=== PATIENT | female | born 1965 | race Caucasian/White ===

== ENCOUNTER 2021-07-27 09:43 | Emergency (ER) | payer BC ==
--- NOTE | 2021-07-27 10:12 | RAD REPORT ---
EXAM DESCRIPTION: CT - Stone Protocol - 07/27/2021 10:02 am CLINICAL HISTORY: Flank pain. Abd pain;Flank pain COMPARISON: No comparisons TECHNIQUE: Axial images were obtained without oral or IV contrast. Lack of contrast limits solid org an and vascular assessment. The [id number] spans the entirety of the system partially obscuring uppermost abdomen and lung bases. Coronal reformatted images were obtained and reviewed. All CT scans are performed using dose optimization technique as appropriate and may include automated exposure control or mA/KV adjustment according to patient size. FINDINGS: The lower lung smith are clear. Imaged portions of the liver and spleen show no suspicious findings on non-contrast imaging.Benign he patic cyst. The pancreas and adrenal glands are normal. No pathologic lymphadenopathy in the abdomen or pelvis. No urinary tract stones or obstructive uropathy. Benign exophytic left renal cyst measuring 18 mm. No bowel obstruction, free air, free fluid or abscess. Normal appendix noted.Mild sigmoid diverticulo sis. No significant bony abnormality. IMPRESSION: No urinary tract stones or obstructive uropathy.
[2021-07-27 10:20] LABS: Urine Blood Negative (Negative); Urine Glucose Negative (Negative); Urine Protein Negative (Negative)
[2021-07-27] MEDS ORDERED: MORPHINE 4 MG/ML SYR ONE (10:21)
[2021-07-27] MEDS ORDERED: NA CHLORIDE 0.9% 50 ML ONE (10:21)
[2021-07-27] MEDS ORDERED: ONDANSETRON 4 MG/2 ML VIAL ONE (10:21)
[2021-07-27] MEDS ORDERED: NA CHLORIDE 0.9% 1,000 ML ONE (10:21)
[2021-07-27] MEDS ORDERED: CEFTRIAXONE 1000 MG/VIAL ONE (10:21)
[2021-07-27 10:39] LABS: Absolute Lymphocytes (CBC) 1.9 K/uL (0.7-4.9); Hematocrit 40.7 % (36.0-45.0); Lymphocytes % 23.8 % (15.3-44.8); MPV 9.4 fL (7.6-11.3); RBC Red Blood Cell Count 4.58 M/uL (3.86-4.86)
[2021-07-27 10:49] LABS: Albumin 3.6 g/dL (3.4-5.0); Bilirubin Total 0.4 mg/dL (0.2-1.0); Potassium 4.1 mmol/L (3.5-5.1); Protein, Total 7.7 g/dL (6.4-8.2)
[2021-07-27 11:03] LABS: Urine Bacteria 20-50 /HPF (<20); Urine RBC NONE SEEN /HPF (NONE SEEN)
--- NOTE | 2021-07-27 11:11 | EDPHYS ---
Physician Documentation [facility] Name: Santa Valerio Age: 55 yrs Sex: Female : 1965 Arrival Date: 07/27/2021 Time: 09:45 Bed 8 Private MD: Marcus Staley ED Physician Avelino Barth HPI: 07/27 11:06 This 55 yrs old Female presents to ER via Ambulatory with complaints of R myla Side Pain. 11:06 The patient presents with abdominal pain in the lower abdomen, right lower quadrant. myla Onset: The symptoms/episode began/occurred 3 day(s) ago. The patient presents with pelvic pain, that is located in/on the right lower quadrant, urinary symptoms. Onset: The symptoms/episode began/occurred 2 day(s) ago. Modifying factors: The symptoms are alleviated by nothing, the symptoms are aggravated by nothing. Associated signs and symptoms: The patient has no apparent associated signs or symptoms. Severity of symptoms: At their worst the symptoms were mild, in the emergency department the symptoms are unchanged. The patient is not sexually active. Historical: - Allergies: 10:02 No Known Allergies; jl7 - PMHx: 10:02 Anxiety; cervical cancer; jl7 - PSHx: 10:02 Total abdominal hysterectomy; jl7 - Immunization history:: Client reports receiving the 2nd dose of the Covid vaccine. - Social history:: Smoking status: Patient denies any tobacco usage or history of. - Family history:: not pertinent. ROS: 11:06 Constitutional: Negative for fever, chills, and weight loss, Eyes: Negative for injury, myla pain, redness, and discharge, ENT: Negative for injury, pain, and discharge, Neck: Negative for injury, pain, and swelling, Cardiovascular: Negative for chest pain, palpitations, and edema, Respiratory: Negative for shortness of breath, cough, wheezing, and pleuritic chest pain, Back: Negative for injury and pain, MS/Extremity: Negative for injury and deformity, Skin: Negative for injury, rash, and discoloration, Neuro: Negative for headache, weakness, numbness, tingling, and seizure. 11:06 Abdomen/GI: Positive for abdominal pain, of the posterior aspect of right lateral abdomen, anterior aspect of right lateral abdomen and right lower quadrant. Exam: 11:06 Constitutional: This is a well developed, well nourished patient who is awake, alert, myla and in no acute distress. Head/Face: Normocephalic, atraumatic. Eyes: Pupils equal round and reactive to light, extra-ocular motions intact. Lids and lashes normal. Conjunctiva and sclera are non-icteric and not injected. Cornea within normal limits. Periorbital areas with no swelling, redness, or edema. ENT: Nares patent. No nasal discharge, no septal abnormalities noted. Tympanic membranes are normal and external auditory canals are clear. Oropharynx with no redness, swelling, or masses, exudates, or evidence of obstruction, uvula midline. Mucous membranes moist. Neck: Trachea midline, no thyromegaly or masses palpated, and no cervical lymphadenopathy. Supple, full range of motion without nuchal rigidity, or vertebral point tenderness. No Meningismus. Chest/axilla: Normal chest wall appearance and motion. Nontender with no deformity. No lesions are appreciated. Cardiovascular: Regular rate and rhythm with a normal S1 and S2. No gallops, murmurs, or rubs. Normal PMI, no JVD. No pulse deficits. Respiratory: Lungs have equal breath sounds bilaterally, clear to auscultation and percussion. No rales, rhonchi or wheezes noted. No increased work of breathing, no retractions or nasal flaring. Back: No spinal tenderness. No costovertebral tenderness. Full range of motion. Skin: Warm, dry with normal turgor. Normal color with no rashes, no lesions, and no evidence of cellulitis. MS/ Extremity: Pulses equal, no cyanosis. Neurovascular intact. Full, normal range of motion. Neuro: Awake and alert, GCS 15, oriented to person, place, time, and situation. Cranial nerves II-XII grossly intact. Motor strength 5/5 in all extremities. Sensory grossly intact. Cerebellar exam normal. Normal gait. Psych: Awake, alert, with orientation to person, place and time. Behavior, mood, and affect are within normal limits. 11:06 Abdomen/GI: Inspection: abdomen appears normal, Bowel sounds: normal, Palpation: mild abdominal tenderness, in the suprapubic area, posterior aspect of right lateral abdomen, anterior aspect of right lateral abdomen and right lower quadrant. Vital Signs: 09:50 BP 135 / 71; Pulse 84; Resp 17; Temp 98.9; Pulse Ox 100% on R/A; Weight 89.36 kg; jl7 Height 2 ft. 7 in. (78.74 cm); Pain 8/10; 10:25 BP 120 / 70; Pulse 84; Resp 15; Pulse Ox 98% on R/A; jl7 11:30 BP 131 / 78; Pulse 60; Resp 15; Pulse Ox 100% ; jl7 09:50 Body Mass Index 144.13 (89.36 kg, 78.74 cm) 7 MDM: 09:50 Patient medically screened. myla 11:08 Differential diagnosis: urinary tract infection, Cholelithiasis, diverticulitis, myla non-specific abd pain. Data reviewed: vital signs, nurses notes, lab test result(s), radiologic studies, CT scan. Data interpreted: laboratory monitor: not applicable for this patient encounter. rate is 98 beats/min, rhythm is regular, Pulse oximetry: on room air is 98 %. Test interpretation: by ED physician or midlevel provider:. Counseling: I had a detailed discussion with the patient and/or guardian regarding: the historical points, exam findings, and any diagnostic results supporting the discharge/admit diagnosis, lab results, radiology results. 07/27 09:52 Order name: CBC with Diff; Complete Time: 11:04 [facility] 07/27 09:52 Order name: CMP; Complete Time: 11:04 [facility] 07/27 09:52 Order name: Lipase; Complete Time: 11:04 [facility] 07/27 09:52 Order name: Urine Microscopic Only; Complete Time: 11:04 [facility] 07/27 09:53 Order name: Urine Culture [facility] 07/27 10:20 Order name: Urine Dipstick-Ancillary; Complete Time: 11:04 [facility] 07/27 09:52 Order name: IV Saline Lock; Complete Time: 10:20 [facility] 07/27 09:52 Order name: Labs collected and sent; Complete Time: 10:20 [facility] 07/27 09:52 Order name: CT Stone Protocol; Complete Time: 10:16 [facility] 07/27 09:52 Order name: Urine Dipstick-Ancillary (obtain specimen); Complete Time: 10:20 myla Administered Medications: 10:20 Drug: NS 0.9% 1000 ml Route: IV; Rate: 1 bolus; Site: right antecubital; jl7 10:20 Drug: Zofran (Ondansetron) 4 mg Route: IVP; Site: right antecubital; jl7 10:22 Drug: morphine 4 mg Route: IVP; Site: right antecubital; jl7 10:24 Drug: Rocephin (cefTRIAXone) 1 grams Route: IV; Rate: per protocol; Site: right jl7 antecubital; 11:18 Drug: LevOfloxacin 500 mg Route: PO; jg9 Disposition Summary: 07/27/21 11:10 Discharge Ordered Location: Home myla Problem: new myla Symptoms: have improved myla Condition: Stable myla Diagnosis - UTI/ Urinary tract infection, site not specified myla - Abdominal tenderness myla Followup: myla - With: Marcus Staley MD - When: 2 - 3 days - Reason: Recheck today's complaints, Continuance of care, Re-evaluation by your physician Discharge Instructions: - Discharge Summary Sheet myla - Abdominal Pain, Adult myla - Dysuria myla - Urinary Tract Infection, Adult myla - Urinary Tract Infection, Adult, Pkiy-bt-[id number] myla - Abdominal Pain, Adult, [id number] myla Forms: - Medication Reconciliation Form myla - Thank You Letter myla - Antibiotic Education myla - Prescription Opioid Use myla Prescriptions: - levofloxacin 250 mg Oral Tablet - take 1 tablet by ORAL route once daily; 7 tablet; Refills: 0, Product Selection myla Permitted - Tylenol-Codeine #3 300 mg-30 mg Oral - take 2 tablet by ORAL route every 6 hours; 20 tablet; Refills: 0, Product myla Selection Permitted Signatures: Dispatcher [employer] Avelino Archibald MD MD cha Leal, Jahala RN RN jl7 Digna Crawford RN RN jg9
--- NOTE | 2021-07-27 11:11 | ER ---
Nurse's Notes [facility] Name: Santa Valerio Age: 55 yrs Sex: Female : 1965 Arrival Date: 07/27/2021 Time: 09:45 Bed 8 Private MD: Marcus Staley Diagnosis: UTI/ Urinary tract infection, site not specified;Abdominal tenderness Presentation: 07/27 09:50 Chief complaint: Patient states: Burning with urination x 7 days, PCP collected urine jl7 and reported bacteria in the urine, started Macrobid on Friday, burning has resolved but now have pain from right flank, PCP tested another urine and reported increases bacteria and sent me here because it might be a kidney stone. Coronavirus screen: At this time, the client does not indicate any symptoms associated with coronavirus-19. Ebola Screen: No symptoms or risks identified at this time. Initial Sepsis Screen: Does the patient meet any 2 criteria? No. Patient's initial sepsis screen is negative. Does the patient have a suspected source of infection? No. Patient's initial sepsis screen is negative. Risk Assessment: Do you want to hurt yourself or someone else? Patient reports no desire to harm self or others. Onset of symptoms is unknown. Care prior to arrival: None. 09:50 Method Of Arrival: Ambulatory jl7 09:50 Acuity: TANA 3 jl7 Triage Assessment: 09:50 General: Appears in no apparent distress. uncomfortable, Behavior is calm, cooperative, jl7 appropriate for age. Pain: Complains of pain in right flank Pain currently is 8 out of 10 on a pain scale. Neuro: Level of Consciousness is awake, alert, obeys commands, Oriented to person, place, time, situation. Cardiovascular: Patient's skin is warm and dry. Respiratory: Airway is patent Respiratory effort is even, unlabored, Respiratory pattern is regular, symmetrical. : Reports pain in right flank(s). 09:50 Derm: Skin is pink, warm \T\ dry. jl7 Historical: - Allergies: 10:02 No Known Allergies; jl7 - PMHx: 10:02 Anxiety; cervical cancer; jl7 - PSHx: 10:02 Total abdominal hysterectomy; jl7 - Immunization history:: Client reports receiving the 2nd dose of the Covid vaccine. - Social history:: Smoking status: Patient denies any tobacco usage or history of. - Family history:: not pertinent. Screenin:00 Abuse screen: Denies threats or abuse. Denies injuries from another. Nutritional jl screening: No deficits noted. Tuberculosis screening: No symptoms or risk factors identified. Fall Risk IV access (20 points). Total Dash Fall Scale indicates No Risk (0-24 pts). Assessment: 09:50 General: See triage. jl7 10:45 Reassessment: Patient appears in no apparent distress at this time. Patient and/or jl7 family updated on plan of care and expected duration. Pain level reassessed. Patient is alert, oriented x 3, equal unlabored respirations, skin warm/dry/pink. Patient states symptoms have improved. 11:15 Reassessment: Pt will be discharged once fluids are done infusing and pt's [facility] transportation arrives. Vital Signs: 09:50 BP 135 / 71; Pulse 84; Resp 17; Temp 98.9; Pulse Ox 100% on R/A; Weight 89.36 kg; jl7 Height 2 ft. 7 in. (78.74 cm); Pain 8/10; 10:25 BP 120 / 70; Pulse 84; Resp 15; Pulse Ox 98% on R/A; jl7 11:30 BP 131 / 78; Pulse 60; Resp 15; Pulse Ox 100% ; jl7 09:50 Body Mass Index 144.13 (89.36 kg, 78.74 cm) 7 ED Course: 09:45 Patient arrived in ED. ds1 09:45 Marcus Staley MD is Private Physician. ds1 09:47 Dalia Helton RN is Primary Nurse. jl7 09:50 Avelino Barth MD is Attending Physician. [facility] 09:50 Arm band placed on right wrist. jl7 10:00 Patient has correct armband on for positive identification. Placed in gown. Bed in low [facility] position. Call light in reach. Side rails up X 1. Pulse ox on. NIBP on. Warm blanket given. 10:02 Triage completed. jl7 10:08 CT Stone Protocol In Process Unspecified. EDMS 10:10 Initial lab(s) drawn, by sc, sent to lab. Inserted saline lock: 20 gauge in right [facility] antecubital area, using aseptic technique. Blood collected. 10:20 Urine Microscopic Only Sent. dh3 10:20 Urine Culture Sent. 3 11:10 Marcus Staley MD is Referral Physician. [facility] 12:04 No provider procedures requiring assistance completed. 7 12:42 IV discontinued, intact, bleeding controlled, No redness/swelling at site. Pressure jl7 dressing applied. Administered Medications: 10:20 Drug: NS 0.9% 1000 ml Route: IV; Rate: 1 bolus; Site: right antecubital; jl7 10:20 Drug: Zofran (Ondansetron) 4 mg Route: IVP; Site: right antecubital; jl7 10:22 Drug: morphine 4 mg Route: IVP; Site: right antecubital; jl7 10:24 Drug: Rocephin (cefTRIAXone) 1 grams Route: IV; Rate: per protocol; Site: right jl7 antecubital; 11:18 Drug: LevOfloxacin 500 mg Route: PO; jg9 Outcome: 11:10 Discharge ordered by . [facility] 12:41 Discharged to home ambulatory. 7 12:41 Condition: stable 12:41 Discharge instructions given to patient, Instructed on discharge instructions, follow up and referral plans. medication usage, Demonstrated understanding of instructions, follow-up care, medications, Prescriptions given X 2. 12:42 Patient left the ED. 7 Signatures: Dispatcher [employer] EDAvelino Celestin MD MD cha Sanford, Demi ds1 Dalia Helton, RN RN jl7 Jyoti Rivera 3 Digna Crawford RN RN jg9
[2021-07-27] MEDS ORDERED: levoFLOXacin 500 MG TAB ONE (11:19)
== END 2021-07-27 12:42 | disposition home or self-care (01) ==
LOC: ER 09:43
DX: N39.0 Urinary tract infection, site not specified (principal); Z85.41 Personal history of malignant neoplasm of cervix uteri
CPT/HCPCS: 87088; 85025; 87086; 36415; 83690; 80053; 76377; 74176; 96375; 96374; 99284; J7030; J2405; 81003; 81015

== ENCOUNTER 2024-01-21 06:58 | Day surgery (SDC) | payer BC ==
[2024-01-20 12:41] LABS: Absolute Eosinophils 0.2 K/uL (0-0.5); Absolute Lymphocytes (CBC) 2.6 K/uL (0.7-4.9); Absolute Monocytes 0.6 K/uL (0.1-1.3); Absolute Neutrophil 5.3 K/uL (1.8-8.0); Basophils % 0.5 % (0-1.3); Hematocrit 38.3 % (36.0-45.0); Hemoglobin 12.4 g/dL (12.0-15.0); Lymphocytes % 29.7 % (15.3-44.8); MCH 28.9 pg (27.0-35.0); MCHC 32.3 g/dL (32.0-36.0); MCV 89.7 fL (80-100); MPV 9.2 fL (7.6-11.3); Monocytes % 7.3 % (3.3-12.3); Neutrophils % 60.5 % (41.7-73.7); Platelets 334 thou/uL (152-406); RBC Red Blood Cell Count 4.28 M/uL (3.86-4.86); Red Cell Distribution Width 14.1 % (12.1-15.2)
[2024-01-20 12:54] LABS: Anion Gap 11.2 mEq/L (5.0-15.0); Potassium 4.2 mEq/L (3.5-5.1)
--- NOTE | 2024-01-20 13:28 | RAD REPORT ---
EXAMINATION: ONE VIEW CHEST XR CLINICAL INDICATION: Female, 58 years old.,preop SDS at desk TECHNIQUE: Frontal chest projection is submitted. Examination is limited by patient positioning and t echnique. COMPARISON: 12/27/2020 chest x-ray FINDINGS: The lungs are well inflated and clear. No pneumothorax or sizable effusion. The heart is normal in s ize. IMPRESSION: No acute intrathoracic abnormalities.
[2024-01-21] MEDS: Ringers Lactate 1,000 ML IV ONE (07:30)
[2024-01-21] MEDS: CEFAZOLIN SODIUM 1 GM/VIAL ONE (09:07)
[2024-01-21] MEDS ORDERED: propofoL 200 MG/20 ML VIAL IV ONE ×2 (09:24→10:11)
[2024-01-21] MEDS ORDERED: ONDANSETRON 4 MG/2 ML VIAL ONE ×2 (09:24→10:11)
[2024-01-21] MEDS ORDERED: MIDAZOLAM HCL 2 MG/2 ML INJ ONE ×2 (09:24→10:12)
[2024-01-21] MEDS ORDERED: LIDOCAINE 2% MPF 5 ML VIAL ONE ×2 (09:24→10:12)
[2024-01-21] MEDS ORDERED: FENTANYL CITR 100 MCG/2 ML ONE ×2 (09:24→10:11)
[2024-01-21] MEDS ORDERED: dexAMETHasone 10 MG/ML VIAL ONE (10:11)
[2024-01-21] MEDS ORDERED: KETOROLAC 30 MG/ML INJ ONE (10:11)
[2024-01-21] MEDS ORDERED: NS 0.9% VIAL 10 ML ONE (11:27)
[2024-01-21] MEDS ORDERED: HYDROMORPHONE HCL 1 MG/ML INJ ONE (11:55)
--- NOTE | 2024-01-21 12:16 | P.BOP ---
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
--- NOTE | 2024-01-21 12:58 | EKG ---
Test Date: 2024-01-20 Test Time: 13:13:28 Newspaper Photo Editor: SAMANTHA MEASUREMENT RESULTS: Intervals: Rate: 68 NJ: 146 QRSD: 72 QT: 362 QTc: 384 [place]: P: 47 NJ: 146 QRS: 69 T: 64 INTERPRETIVE STATEMENTS: Normal sinus rhythm Normal ECG Compared to ECG 09/04/2016 07:02:47 No significant changes Electronically Signed On 01-21-24 12:54:37 CDT by Moncho Cagle
[2024-01-21] MEDS: CODEINE 30MG/APAP 300MG TAB ONE (14:41)
[2024-01-21 14:52] VITALS: BP 152/80; TEMP 97
[2024-01-21 14:53] VITALS: O2SAT 96
--- NOTE | 2024-01-21 19:24 | RAD REPORT ---
Exam: Mammography needle localization Clinical history: Breast neoplasm Comparison: November 2023 TECHNIQUE: Using grid guidance mammography the suspicious microcalcifications and biopsy clip within the upper o uter quadrant of the left breast were localized. Skin and deeper tissues anesthetized with lidocaine. A Kopan's hookwire was placed within the region of the microcalcifications and biopsy clip. The patient then went to the surgical department IMPRESSION: Mammographic needle/wire localization left breast
--- NOTE | 2024-01-21 19:52 | RAD REPORT ---
Exam: Mammogram breast tissue specimen Clinical history: Breast neoplasm TECHNIQUE: Mammography of the resected breast tissue obtained. FINDINGS: The suspicious microcalcifications and biopsy clip are present within the resected breast specimen.
--- NOTE | 2024-02-02 23:27 | DS ---
Date of Discharge: 01/21/2024 Diagnosis: Left breast ductal carcinoma in situ. Procedure: Left breast lumpectomy, needle localized. Disposition: Home. Activity: As tolerated. No heavy lifting. Discharge Instructions: Follow up in my office in 1 week. Call for appointment at [phone]. Keep a maryann dry for 48 hours, then may shower. Keep Steri-Strips intact. Use breast support. TERRIE/ERIC Voice ID: [id number] Report ID: [id number]
--- NOTE | 2024-02-03 06:30 | OP ---
Surgeon: Job Allison MD Preoperative Diagnosis: Left breast ductal carcinoma in situ. Postoperative Diagnosis: Left breast ductal carcinoma in situ. Procedure: Left breast lumpectomy, needle localized. Estimated Blood Loss: Less than 10 cc. Specimens: Breast. Findings: Lesion and needle within the breast by Dr. Santana. Anesthesia: General plus local. Indication: This is the case of a female who comes to us with left DCIS. She has options of mastect porfirio versus lumpectomy. She wants lumpectomy. She understands she may receive radiation. The benefi ts, alternatives, and risks of lumpectomy, needle localized, fully explained to the patient which inc luded, but not limited to, infection, bleeding, damage to adjacent structures, anesthesia complicatio n, recurrence, GA, and even . She also understands this may not relieve the symptoms. She migh t need more than one surgical intervention. She understood and signed a consent. She understands al so she may have to see the radiation oncologist for radiation in the future. This morning, she went to radiology suite, where she had localization of the lump by Dr. Santana. Procedure In Detail: The patient was brought from the radiology suite to the surgical suite making s ure the wire was intact without movement. The patient was brought to the operating room, placed in s upine position, anesthesia was done without complication. Time-out was called. Left breast was prep ped and draped in usual sterile fashion, making sure we have a sterile area. Once we prepped and andre ped in the usual sterile fashion, making sure the needle was intact, I proceeded to make a curvilinea r incision in that region. Incision was carried to go into the lump, but we noticed also some hard t issue next to that area, so we went past beyond the area of the clips by several centimeters to get t he lump a little bit bigger to make sure we have the area of the disease. We had gross negative seng ins. We removed the lump and the needle, and Dr. Santana confirmed the lesion and the needle are wit hin specimen with the clips. We obtained hemostasis. Then, after that, we proceeded to irrigate the area, looked for local anesthetic, checked for hemostasis again. We closed the area with 3-0 chromi c and 4-0 PDS. Steri-Strip was placed over the area. Breast support was applied. The patient dianne ated procedure well. Sponge count and instrument count were correct. The patient was sent to recove ry in stable condition. TERRIE/ERIC Voice ID: [id number] Report ID: [id number]
== END 2024-01-21 14:45 | disposition home or self-care (01) ==
LOC: OR 06:58
PROVIDERS: ATTEND Surgery
PROC: 0HBU0ZZ Excision of Left Breast, Open Approach (ICD-10-PCS; principal; 2024-01-21 10:15)
DX: D05.12 Intraductal carcinoma in situ of left breast (principal); Z17.0 Estrogen receptor positive status [ER+]
CPT/HCPCS: 19301; 93005; 85025; 80048; 36415; 82947; 88307; 71045; 76098; 19282; 19281; A4216; J2704; J2001; J2250; J3010; J1100; J1170; J2405; J7120; J0690